=== PATIENT | male | born 1940 | race Caucasian/White ===

== ENCOUNTER 2019-11-20 15:51 | Inpatient (IN) | payer MEDICARE, OTHER ==
[~2019-11-20] VITALS: Ht 162.6 cm; Wt 77.6 kg
[~2019-11-20 15:51] MED LIST: AGGRENOX CAPSU1 EACH PO; CRESTOR20 MG PO; HYDROCHLOROTHIA25 M1 PO; LISINOPRIL40 MG PO; OMEPRAZOLE20 MG PO; PROSCAR 5MG TABL5 M1 PO; RISPERDAL0.5 MG PO; TAMSULOSIN HCL0.4 MG PO; TROSPIUM CHLORI60 MG PO; ZOLOFT100 MG PO
[2019-11-20] MEDS ORDERED: LIPITOR40 MG PO (15:59)
[2019-11-20] MEDS ORDERED: FUROSEMIDE 20 M20 MG PO (16:00)
[2019-11-20] MEDS ORDERED: HYDROCHLOROTHIA25 M2 PO (16:00)
[2019-11-20] MEDS ORDERED: CHILDREN'S ZYRT10 M1 PO (16:00)
[2019-11-20 16:20] LABS: BE -0.8 mmol/L (-2 to +3); PCO2 34.9 mmHg (35.0-45.0); PO2 70.8 mmHg (75.0-100.0); pH 7.435 (7.340-7.450)
[2019-11-20 16:30] LABS: ABSOLUTE BASOPHILS 0.1 thou/uL (0.0-0.2); ABSOLUTE EOSINOPHILS 0.2 thou/uL (0.0-0.7); ABSOLUTE LYMPHOCYTES 1.6 thou/uL (0.8-5.3); ABSOLUTE MONOCYTES 0.5 thou/uL (0.0-1.2); ABSOLUTE NEUTROPHILS 4.7 thou/uL (1.6-8.1); EOSINOPHILS 3.3 %; HEMATOCRIT 39.1 % (42.0-52.0); HEMOGLOBIN 13.3 gm/dL (14.0-18.0); LYMPHOCYTES 22.4 %; MCH 27.5 pg (26.0-34.0); MCV 80.8 fL (80.0-100.0); MONOCYTES 6.8 %; MPV 8.7 fl. (7.2-11.1); NUCLEATED RBCS 0 /100WBC; PLATELET COUNT* 172 thou/uL (150-400); POLYS 66.5 %; RBC 4.84 mil/uL (4.50-6.00); RDW-CV 14.6 % (10.5-14.5); WBC 7.1 thou/uL (4.0-11.0)
[2019-11-20 16:41] LABS: CREATININE 1.2 mg/dL (0.6-1.3)
[2019-11-20 16:44] LABS: APTT 26.6 Seconds (25.0-31.3); PROTIME 10.5 Seconds (9.20-11.50)
[2019-11-20 16:54] LABS: ALBUMIN 3.5 g/dL (3.4-5.0); TOTAL BILIRUBIN 0.4 mg/dL (<0.1-1.0); TOTAL PROTEIN 7.3 g/dL (6.4-8.2)
--- NOTE | 2019-11-20 20:06 | NUR ---
CONTACTED NURSING FACULTY. PT ROOM IS STILL NOT AVAILIBLE.
[2019-11-20 20:39] VITALS: BP 133/67
[2019-11-20 20:50] VITALS: BP 130/72
[2019-11-21 00:17] VITALS: BP 106/58
--- NOTE | 2019-11-21 02:45 | NUR ---
PT ADMIT TO ROOM 215 AT 2049. ALERT ORIENTED. VERY FORGETFUL. POOR SHORT TERM MEMORY. LARGE SKIN TEAR ON R POSTERIOR UPPER ARM. DRGS FROM ED SOAKED OFF. PICTURED. WOUND CARE CONSULTED. EMULSION DRSG WITH 4x4 AND COBAN WRAP. MORPHINE GIVEN FOR PAIN IN LEFT LATERAL CHEST AND FLANK WHEN COUGHING. PT UNABLE TO IDENTIFY HOME MEDS. MED REC INCOMPLETE FROM ED. ATTEMPTED TO REACH PTS BUT BUSY SIGNAL. PT IS FLACID ON LEFT SIDE. TURN Q 2 HRS. IVF NS AT 100MLS/HR STARTED. WCTM
[2019-11-21 05:14] VITALS: BP 100/55
[2019-11-21 08:00] VITALS: BP 106/52
--- NOTE | 2019-11-21 12:21 | NUR ---
Nutrition: Pt seen for low BMI. Admitted with PNA. 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 RD spoke with pt today, and his actual wt is ~175#. Accurate BMI is 29.6. Albumin 3.5. Lunch tray was untouched, but pt said that his hasn't brought in his teeth yet. He said he was going to try to eat. Regular diet. COPD. Low nutrition risk at this time.
[2019-11-21 12:32] VITALS: BP 114/60
--- NOTE | 2019-11-21 16:05 | EKG ---
[place] [address] ELECTROCARDIOGRAM REPORT Name: AIDAN CARRANZA Room: [address] IN [facility].#: [id number] Admission: 11/20/19 Attend Phys: Prasanth Dickens Discharge: Date of : 42 Date of Service: 11/20/19 1557 Report #: [id number] THIS REPORT FOR: //name// [facility] ED Test Date: 2019-11-20 Test Time: 15:57:49 Pat Name: AIDAN CARRANZA Department: Room: [facility] Gender: M Case Management Assistant: jannette : [id number] Requested By: Zuleyma Chin Order Number: [id number] MD: Bayron Quesada Measurements Intervals Martin Rate: 67 P: 39 MD: 173 QRS: -30 QRSD: 97 T: 24 QT: 404 QTc: 427 Interpretive Statements Sinus rhythm Atrial premature complex Left axis deviation Borderline low voltage, extremity leads Baseline wander in lead(s) V6 No previous ECG available for comparison Electronically Signed On 11-21-2019 16:03:40 CDT by Bayron Quesada [email or web address] <ELECTRONICALLY SIGNED> By: Bayron Quesada MD, [facility] 11/21/19 1603 1557 1557 Bayron Quesada MD, [facility] /EPI
[2019-11-21 18:38] VITALS: BP 135/65
[2019-11-21 20:00] VITALS: BP 110/62
--- NOTE | 2019-11-21 21:04 | NUR ---
PT. ALERT BUT CONFUSED AT TIMES, IMPULSIVE AND INSISTING ON GETTING OUT OF BED. VSS, STABLE ON MONITOR, DENIES PAIN. CALL LIGHT AND PERSONAL BELONGINGS PLACED WITHIN REACH. HOURLY ROUNDING PERFORMED. R UPPER ARM DRESSING PRESENT, CDI. WOUND CARE ORDERS RECEIVED PER WOUND NURSE. COMMUNICATED TO NEUROLOGY STROKE PHYSICIAN NURSE. PT. IN BED RESTING AT TIME OF SHIFT CHANGE, IN NO APPARENT DISCRESS.
[2019-11-22] VITALS: BP 151/67
[2019-11-22 04:00] VITALS: BP 132/61
[2019-11-22 05:01] LABS: ABSOLUTE EOSINOPHILS 0.2 thou/uL (0.0-0.7); ABSOLUTE LYMPHOCYTES 1.3 thou/uL (0.8-5.3); ABSOLUTE MONOCYTES 0.4 thou/uL (0.0-1.2); ABSOLUTE NEUTROPHILS 4.8 thou/uL (1.6-8.1); BASOPHILS 0.6 %; HEMATOCRIT 34.3 % (42.0-52.0); HEMOGLOBIN 11.6 gm/dL (14.0-18.0); LYMPHOCYTES 19.2 %; MCH 27.2 pg (26.0-34.0); MCHC 33.9 g/dL (28.0-37.0); MCV 80.2 fL (80.0-100.0); MONOCYTES 6.4 %; MPV 8.7 fl. (7.2-11.1); NUCLEATED RBCS 0 /100WBC; PLATELET COUNT* 156 thou/uL (150-400); POLYS 70.8 %; RBC 4.27 mil/uL (4.50-6.00); RDW-CV 14.4 % (10.5-14.5); WBC 6.7 thou/uL (4.0-11.0)
[2019-11-22 05:08] LABS: CALCIUM 8.2 mg/dL (8.5-10.1); CREATININE 1.1 mg/dL (0.6-1.3); POTASSIUM 3.3 mmol/L (3.5-5.1)
--- NOTE | 2019-11-22 05:42 | NUR ---
PATIENT AWAKE AT BEGINNING OF SHIFT. PT ALERT/ORIENTED X4 BUT CONFUSED. PT IS IMPULSIVE WANTING TO GET OUT OF BED AT TIMES. PT UP TO BSC WITH ASSIST OF TWO FOR BOWEL MOVEMENT. PT UNABLE TO HAVE ONE. PT WANTED BRIEF FOR POSSIBLE INCONTINENCE OF BOWEL/BLADDER DURING THE NIGHT. PT REFUSED MOST TURNS DURING THE NIGHT. NEW IV PLACED IN RT FOREARM WITH FLUIDS INFUSING PER DR ORDER. PT NEEDING WOUND DRESSING CHANGED ON RT UPPER ARM BUT REFUSED LAST NIGHT. WILL ATTEMPT AGAIN THIS AM. PT IS SR ON DEPUTY FIRE MARSHAL. FREQUENTLY USED ITEMS AND CALL LIGHT WITHIN REACH. SIDERAILS UPX3 AND BED ALARM ON. WILL CONTINUE TO MONITOR.
--- NOTE | 2019-11-22 06:03 | NUR ---
PATIENT AGREED TO DSG CHANGE ON RT UPPER ARM. ARM CLEANED WITH SALINE THEN DRIED. OIL EMULSION GAUZE PLACED THEN 4X4'S AND FLUFF GAUZE. PT TOLERATED WELL. PT WANTING FLUIDS DISCONTINUED BUT PT ENCOURAGED TO LEAVE THEM RUNNING UNTIL DR ARRIVED. PT AGREED. WILL CONTINUE TO MONITOR.
[2019-11-22 08:00] VITALS: BP 119/74
[2019-11-22 12:02] VITALS: BP 130/82
[2019-11-22 16:02] VITALS: BP 152/115
[2019-11-22 19:30] VITALS: BP 138/71
--- NOTE | 2019-11-22 19:32 | NUR ---
RECEIVED REPORT FROM NUZHAT HOSKINS. ASSUMED CARE OF PT AROUND 0715. PT A&O TO SELF, PLACE, AND SITUATION, NOT TIME. CANDY DIPPER IN PLACE TRACING CHARTED. AM ASSESSMENT AND VITALS COMPLETED CHARTED. IV INTACT AND INFUSING IVF. MEDS PER EMAR. PT WORKED WITH P.T. THIS SHIFT. DENIED PAIN ALL DAY. PT HAD INCONTINENCE OF STOOL THIS AFTERNOON, PT CLEANED. PT ABLE TO SIT IN BEDSIDE CHAIR PART OF SHIFT. TOLERATED DIET. GIVEN UPDATE AROUND 11AM. PT CURRENTLY RESTING IN BEDSIDE CHAIR. CALL LIGHT IS WITHIN REACH. HOURLY ROUNDING PERFORMED. FALL PRECAUTIONS IN PLACE.
[2019-11-23 00:24] VITALS: BP 118/51
[2019-11-23 04:19] LABS: ABSOLUTE BASOPHILS 0.1 thou/uL (0.0-0.2); ABSOLUTE EOSINOPHILS 0.3 thou/uL (0.0-0.7); ABSOLUTE LYMPHOCYTES 1.3 thou/uL (0.8-5.3); ABSOLUTE MONOCYTES 0.5 thou/uL (0.0-1.2); ABSOLUTE NEUTROPHILS 4.3 thou/uL (1.6-8.1); BASOPHILS 0.9 %; EOSINOPHILS 4.2 %; HEMATOCRIT 32.8 % (42.0-52.0); HEMOGLOBIN 11.4 gm/dL (14.0-18.0); LYMPHOCYTES 20.4 %; MCH 27.7 pg (26.0-34.0); MCHC 34.6 g/dL (28.0-37.0); MCV 80.2 fL (80.0-100.0); MONOCYTES 7.2 %; MPV 8.9 fl. (7.2-11.1); NUCLEATED RBCS 0 /100WBC; PLATELET COUNT* 143 thou/uL (150-400); POLYS 67.3 %; RBC 4.09 mil/uL (4.50-6.00); RDW-CV 14.4 % (10.5-14.5); WBC 6.4 thou/uL (4.0-11.0)
[2019-11-23 04:27] VITALS: BP 138/61
[2019-11-23 04:28] LABS: CALCIUM 8.2 mg/dL (8.5-10.1); CREATININE 1.1 mg/dL (0.6-1.3); POTASSIUM 3.1 mmol/L (3.5-5.1)
--- NOTE | 2019-11-23 06:59 | NUR ---
PT SLEPT MOST OF SHIFT. ASSESSMENT DOCUMENTED. MEDS GIVEN PER E-MAR. IV PATENT, FLUIDS INFUSING. NO REPORTS OF PAIN THIS SHIFT. PT ASKING TO LEAVE TO GO SMOKE, PT EDUCATED. FALL PRECAUTIONS IN PLACE. WILL CONTINUE WITH PLAN OF CARE.
[2019-11-23 08:00] VITALS: BP 124/60
[2019-11-23 11:59] VITALS: BP 154/68
[2019-11-23 14:00] VITALS: BP 154/68
[2019-11-23] MEDS ORDERED: AUGMENTIN 875-1 EACH PO (14:11)
--- NOTE | 2019-11-23 15:37 | NUR ---
ASSUMED PT CARE AT 0730. ASSESSMENT COMPLETED CHARTED. ABLE TO MAKE NEEDS KNOWN. NO C/O PAIN OR DISCOMFORT. RESTING IN BED MOST OF THE DAY. UP WITH 1-2 ASSIST TO RESTROOM OR BSC. DISCHARGE APPROVED AFTER CHEST XRAY AND LAB WORK TODAY. DISCHARGE PAPERWORK WENT OVER WITH PT. SCRIPT AND MED INFO GIVEN TO PT. ALL BELONGINGS TAKEN WITH HIM TO HIS CAR IN A WHEELCHAIR AT AROUND 1530. NO COMMENTS, QUESTIONS, OR CONCERNS NOTED.
== END 2019-11-23 15:30 | disposition home or self-care (01) | DRG 177 ==
LOC: M.ERS 15:51 → M.TBA-ER 17:59 → M.2W 17:59
PROVIDERS: Personal Emergency Response Attendant; ADMIT Internal Medicine
DX: J15.6 Pneumonia due to other Gram-negative bacteria (principal); E43 Unspecified severe protein-calorie malnutrition; I50.32 Chronic diastolic (congestive) heart failure; I69.354 Hemiplegia and hemiparesis following cerebral infarction affecting left non-dominant side; E78.00 Pure hypercholesterolemia, unspecified; K21.9 Gastro-esophageal reflux disease without esophagitis; F32.9 Major depressive disorder, single episode, unspecified; N40.0 Benign prostatic hyperplasia without lower urinary tract symptoms; I11.0 Hypertensive heart disease with heart failure; J44.9 Chronic obstructive pulmonary disease, unspecified; J18.9 Pneumonia, unspecified organism; F17.210 Nicotine dependence, cigarettes, uncomplicated; M19.91 Primary osteoarthritis, unspecified site; I73.9 Peripheral vascular disease, unspecified; R91.1 Solitary pulmonary nodule; Z79.899 Other long term (current) drug therapy